=== PATIENT | female | born 1990 | race Caucasian/White ===

== ENCOUNTER → 2018-09-27 09:24 | Outpatient (CLI) | payer MEDICAID, SELFPAY ==
[2018-09-27 10:49] LABS: Hemoglobin 12.6 g/dl (12.0-15.0); Mean Corp Hgb Conc 32.3 g/gl (32-36); Mean Corpuscular Hgb 28.4 pg (27.0-32.0); Mean Platelet Vol. 10.5 fl (6.2-12.0); Platelet Count 364 K/mm3 (150-450); RBC Distribution Width CV 15.1 % (11.6-14.6); RBC Distribution Width SD 48.4 fl (35.1-43.9); Red Blood Count 4.43 M/mm3 (4.2-5.4); Scan Indicated on CBC? Y/N NO; White Blood Count 11.4 K/mm3 (4.4-11.0)
[2018-09-27 11:11] LABS: Hemoglobin A1c 5.7 % (4.2-6.3)
[2018-09-27 11:16] LABS: Vitamin B12 533 pg/mL (211-911); Vitamin D,25 Hydroxy 20.5 ng/mL (29.95-100.01)
[2018-09-27 11:21] LABS: ALB/GLOB Ratio 0.7 RATIO (0.9-2.4); AST(SGOT) 14 U/L (15-37); Alanine Aminotransfer ALT/SGPT 28 U/L (13-56); Albumin, Serum 3.4 g/dL (3.2-5.0); Alkaline Phosphatase 76 U/L (45-117); Anion Gap 9 (5-15); BUN 12 mg/dL (7-18); BUN/Creat Ratio 14.3 RATIO (10-20); Calcium,Total 8.7 mg/dL (8.5-10.1); Chloride 106 mmol/L (98-107); Cholesterol 189 mg/dL (200); Creatinine, Serum 0.84 mg/dL (0.55-1.02); EST Glomerular Filtration Rate 84 mL/min (>60); Est Glom Filt Rate - Afr Amer 102 mL/min (>60); Ferritin 26 ng/mL (8-252); Globulin 4.7 g/dL (2.2-4.2); Glucose 94 mg/dL (74-106); High Density Lipoprotein 45 mg/dL; Iron 33 ug/dL (50-170); Magnesium 2.3 mg/dL (1.6-2.6); Potassium 4.2 mmol/L (3.5-5.1); Protein, Total 8.1 g/dL (6.4-8.2); Sodium Level 141 mmol/L (136-145); Thyroid Stim Hormone (TSH) 1.76 uIU/mL (0.358-3.74); Triglycerides 152 mg/dL; Very Low Density Lipoprotein 30 mg/dL (5-40)
[2018-09-27 12:44] LABS: Amphetamine Urine VISTA NEGATIVE (<1000 ng/mL); Barbiturate Urine VISTA NEGATIVE (< 200 ng/mL); Benzodiazepine Urine VISTA NEGATIVE (< 200 ng/mL); Cocaine Urine VISTA NEGATIVE (< 300 ng/mL); Ecstacy Urine VISTA NEGATIVE (< 500 ng/mL); Methadone Urine VISTA NEGATIVE (< 300 ng/mL); PCP Urine VISTA NEGATIVE (< 25 ng/mL); THC Urine VISTA NEGATIVE (< 50 ng/mL); Vista UDS pH Range 7
[2018-10-02 09:47] LABS: Vitamin B1, Thiamine 157.1 nmol/L (66.5-200.0); Zinc, Plasma or Serum 102 ug/dL (56-134)
== END ==
PROVIDERS: Family Provider Internal Medicine; PCP Internal Medicine; Referring Provider Registered Nurse Nephrology; Visit Provider Registered Nurse Nephrology
DX: R53.83 Other fatigue (principal); R06.02 Shortness of breath; E66.01 Morbid (severe) obesity due to excess calories; R12 Heartburn
CPT/HCPCS: 36415; 80053; 80061; 80307; 82306; 82607; 82728; 82746; 83036; 83540; 83735; 84425; 84443; 84630; 85027

== ENCOUNTER 2019-01-31 22:05 | Emergency (ER) | payer MEDICAID, SELFPAY ==
[2019-01-31 22:06] VITALS: BP 150/86; PULSE 128; RESP 19; TEMP 37.3; O2SAT 98; BMI 39.6
[2019-01-31 22:22] VITALS: TEMP 37.3
--- NOTE | 2019-01-31 22:24 | ED.RN ---
PT HAS A REDDENED RASH/YEAST INFECTION IN HER ABDOMINAL FOLD AND NEAR THE STERI STRIP SITES.
--- NOTE | 2019-01-31 22:32 | ED.VIS.GEN ---
History of Present Illness Chief Complaint: Wound Check Informant: Patient Onset: Days Context: Gradual Onset Narrative: Patient is a 29-year-old female that is status post laparoscopic Nela-en-Y gastric bypass performed by Dr Patel on 01/22 presenting with worsening nausea as well as worsening rash. Patient states she had an uncomplicated surgical course. The past 4 days she has had a worsening rash underneath her pannus and around her like us. Patient states is itching and burning in nature. She states she was started on 2 medications 2 days ago for suspected yeast infection (and ointment and fluconazole). Patient also states that she is having a hard time keeping herself hydrated. She is having a lot of nausea and dry heaves. She is only drinking about 8 ounces of water a day. She states she supposed be drinking 64 ounces. She notes she had decreased urine output. Patient does have a postoperative pain on the left upper abdomen which she states been present since her surgery. She has not had any significant change in this. She denies any fever or chills. She states she is passing gas and has had some liquid bowel movement since the surgery. She denies any other complaints at this time. She notes she has an appointment to see her surgeon tomorrow morning but could not wait any longer. Past Medical History - Allergies and Home Meds Allergies/Adverse Reactions: Allergies No Known Allergies Allergy (Verified 01/31/19 22:11) Primary Care Physician: Staci Mckeon MD [Primary Care Provider] - Past Medical History: None Surgical History: cholecystectomy, gastric bypass Smoking Status: Unknown if ever smoked Review of Systems All systems negative except as indicated General: Reports: Malaise Gastrointestinal: Reports: Abdominal pain, Nausea, Vomiting Skin: Reports: Rash Physical Exam Vital Signs/Narrative: Vital Signs Temp Pulse Resp BP Pulse Ox 01/31/19 22:22 99.2 F H 01/31/19 22:06 99.2 F H 128 H 19 H 150/86 H 98 Inital Vital Signs reviewed: Yes General: Well nourished, Well developed, Obese, No Acute Distress, - - Tearful Head: Normocephalic, Atraumatic Eyes: Perrl, EOMI ENT: No rhinorrhea, Dry mucous membranes Neck: Supple, Nontender Cardiovascular: Regular rhythm, No murmurs, Tachycardia Respiratory: No distress, CTA bilaterally, Chest nontender Abdomen: Soft, Nondistended, Hypoactive bowel sounds, - - Mild tenderness to palpation in the left abdomen as well as periumbilical area, no peritoneal signs. Negative for: Guarding, Rebound tenderness Back: Nontender, Normal Inspection Extremities: Nontender, No edema Skin: Normal color, No rash Neurological: Alert, Oriented x3, Cranial nerves II-XII grossly intact, Normal Strength, Normal Sensation Psychological: Normal affect, Tearful, - - Anxious Diagnostic/Tx/Re-eval Laboratory Data 01/31/19 22:54 Sodium 138 Potassium 3.6 Chloride 107 Carbon Dioxide 20.0 L Anion Gap 11 BUN 11 Creatinine 0.73 Estim Creat Clear Calc 116.69 Est GFR (MDRD) Af Amer 119 Est GFR (MDRD) Non-Af 98 BUN/Creatinine Ratio 15.0 Glucose 88 Calcium 9.0 - Medical Decision Making She is evaluated for 2 complaints. She has a rash that has been worsening her over the past 4 days and is also having nausea and vomiting postoperatively. She appears nontoxic and in no acute distress however she is quite anxious. She does have some associated tenderness her abdomen but I attribute this to her postoperative status. She does not have peritoneal signs. Patient is given IV fluids as well as IV Phenergan. On evaluation she states she is feeling better. I spoke with her surgeon who is agreeable with discharge home to follow-up in the office tomorrow as well as short course of steroids in case this is an contact dermatitis. Patient rash does look fungal however she thinks it is getting worse with antifungal so we will trial a course of steroids. She is having trouble tolerating food/medications I will give her a shot of Kenalog. Patient is agreeable with this plan. She is also prescribed a course of Kenalog cream. The rest of the patient's complaints I suspect are from an expected postoperative course and I do not think she requires further evaluation such as imaging or further labs. Patient is counseled on signs and symptoms requiring return to the emergency room. Patient verbalizes agreement and understand this plan. Patient discharged home in stable and improved condition. ED Disposition - Plan for ED Patient: Disposition: Home or Assisted Living Diagnosis: Dermatitis associated with moisture, Post-operative nausea and vomiting, Postoperative abdominal pain Instructions: POST OP WOUND CHECK, General, DERMATITIS, Non-Specific, Methylprednisolone, Im/Iv Prescriptions: proMETHazine tablet [Phenergan] 25 mg PO Q6H PRN PRN #10 tab PRN Reason: Nausea Prescription Printed Referrals: Staci Mckeon MD [Primary Care Provider] - Additional Instructions: Very importantly follow-up with your surgeon tomorrow. Try to drink as much fluid as possible. Return if you have worsening symptoms. Use the steroid cream 2-3 times a day as needed.
[2019-01-31 23:15] LABS: Anion Gap 11 (5-15); BUN 11 mg/dL (7-18); Chloride 107 mmol/L (98-107); Creatinine, Serum 0.73 mg/dL (0.55-1.02); EST Glomerular Filtration Rate 98 mL/min (>60); Est Glom Filt Rate - Afr Amer 119 mL/min (>60); Estimated Creatinine Clearance 116.69 ml/min; Glucose 88 mg/dL (74-106); Potassium 3.6 mmol/L (3.5-5.1); Sodium Level 138 mmol/L (136-145)
[2019-01-31] MEDS: 0.9% Normal Saline 1,000 ML 1000 ML IV (23:18)
[2019-01-31] MEDS: proMETHazine 25 MG/ML Syringe 12.5 MG IV (23:18)
[2019-02-01 00:04] VITALS: BP 113/73; PULSE 80; RESP 16; TEMP 37.7; O2SAT 97
[2019-02-01 00:05] VITALS: BP 125/82; PULSE 76; RESP 18; O2SAT 97
[2019-02-01] MEDS: Triamcinolone Acetonide 40 MG/ML Vial IM (00:13)
[2019-02-01] MEDS: Triamcinolone 0.5% Cream 1 APPLIC TOPICAL (00:14)
--- NOTE | 2019-02-01 00:32 | ED.RN ---
SHOT TIME WAS OBSERVED FOR 15MIN, NO REACTION WAS NOTED BY THIS NURSE.
== END 2019-02-01 00:33 | disposition home or self-care (01) ==
PROVIDERS: Emergency Provider Emergency Medicine; Family Provider Internal Medicine; PCP Internal Medicine
DX: L30.9 Dermatitis, unspecified (principal); R10.12 Left upper quadrant pain; G89.18 Other acute postprocedural pain; R11.2 Nausea with vomiting, unspecified; Z98.84 Bariatric surgery status; Z90.49 Acquired absence of other specified parts of digestive tract
CPT/HCPCS: 80048; 96361; 96372; 96374; 99285; J7030; A4216

== ENCOUNTER → 2019-02-26 | Outpatient (CLI) | payer MEDICAID, SELFPAY ==
[2019-01-31 22:06] VITALS: BMI 39.6
[2019-02-26 13:30] LABS: Hematocrit 40.3 % (37-47); Hemoglobin 12.8 g/dL (12.0-15.0); Mean Corp Hgb Conc 31.8 g/dL (32-36); Mean Corpuscular Hgb 29.2 pg (27.0-32.0); Mean Corpuscular Volume 91.8 fL (81-99); Mean Platelet Vol. 10.7 fl (6.2-12.0); Platelet Count 273 K/mm3 (150-450); RBC Distribution Width SD 54.4 fl (35.1-43.9); Red Blood Count 4.39 M/mm3 (4.2-5.4); White Blood Count 6.9 K/mm3 (4.4-11.0)
[2019-02-26 14:12] LABS: Vitamin B12 709 pg/mL (211-911)
[2019-02-26 14:22] LABS: BUN 9 mg/dL (7-18); Creatinine, Serum 0.64 mg/dL (0.55-1.02); Glucose 98 mg/dL (74-106)
[2019-02-26 14:23] LABS: ALB/GLOB Ratio 0.8 RATIO (0.9-2.4); AST(SGOT) 20 U/L (15-37); Alanine Aminotransfer ALT/SGPT 36 U/L (13-56); Albumin, Serum 3.4 g/dL (3.2-5.0); Alkaline Phosphatase 72 U/L (45-117); Anion Gap 7 (5-15); Calcium,Total 8.9 mg/dL (8.5-10.1); Chloride 106 mmol/L (98-107); EST Glomerular Filtration Rate 115 mL/min (>60); Est Glom Filt Rate - Afr Amer 139 mL/min (>60); Ferritin 31 ng/mL (8-252); Globulin 4.2 g/dL (2.2-4.2); Iron 51 ug/dL (50-170); Magnesium 2.4 mg/dL (1.6-2.6); Potassium 3.8 mmol/L (3.5-5.1); Protein, Total 7.6 g/dL (6.4-8.2); Sodium Level 140 mmol/L (136-145)
[2019-02-28 12:22] LABS: Zinc, Plasma or Serum 102 ug/dL (56-134)
== END | disposition home or self-care (01) ==
PROVIDERS: Family Provider Internal Medicine; PCP Internal Medicine
DX: E66.01 Morbid (severe) obesity due to excess calories (principal); K90.9 Intestinal malabsorption, unspecified; E61.7 Deficiency of multiple nutrient elements
CPT/HCPCS: 80053; 82607; 82728; 82746; 83540; 83735; 84630; 85027

== ENCOUNTER → 2019-06-13 15:38 | Outpatient (CLI) | payer MEDICAID, SELFPAY ==
[2019-06-13 16:37] LABS: Hematocrit 38.2 % (37-47); Hemoglobin 12.2 g/dL (12.0-15.0); Mean Corp Hgb Conc 31.9 g/dL (32-36); Mean Corpuscular Hgb 29.3 pg (27.0-32.0); Mean Corpuscular Volume 91.8 fL (81-99); Platelet Count 318 K/mm3 (150-450); RBC Distribution Width CV 14.4 % (11.6-14.6); RBC Distribution Width SD 48.1 fl (35.1-43.9); Red Blood Count 4.16 M/mm3 (4.2-5.4); White Blood Count 7.8 K/mm3 (4.4-11.0)
[2019-06-13 17:16] LABS: Vitamin B12 433 pg/mL (211-911)
[2019-06-13 17:23] LABS: ALB/GLOB Ratio 0.9 RATIO (0.9-2.4); AST(SGOT) 9 U/L (15-37); Alanine Aminotransfer ALT/SGPT 18 U/L (13-56); Albumin, Serum 3.7 g/dL (3.2-5.0); Alkaline Phosphatase 70 U/L (45-117); Anion Gap 6 (5-15); BUN 14 mg/dL (7-18); BUN/Creat Ratio 19.6 RATIO (10-20); Calcium,Total 9.4 mg/dL (8.5-10.1); Chloride 108 mmol/L (98-107); Creatinine, Serum 0.72 mg/dL (0.55-1.02); EST Glomerular Filtration Rate 101 mL/min (>60); Est Glom Filt Rate - Afr Amer 122 mL/min (>60); Ferritin 27 ng/mL (8-252); Glucose 92 mg/dL (74-106); Iron 66 ug/dL (50-170); Magnesium 2.4 mg/dL (1.6-2.6); Potassium 3.8 mmol/L (3.5-5.1); Protein, Total 7.7 g/dL (6.4-8.2); Sodium Level 140 mmol/L (136-145)
[2019-06-16 10:41] LABS: Zinc, Plasma or Serum 74 ug/dL (56-134)
== END ==
PROVIDERS: PCP Internal Medicine; Referring Provider Registered Nurse Nephrology; Visit Provider Registered Nurse Nephrology
DX: E66.09 Other obesity due to excess calories (principal); Z68.38 Body mass index [BMI] 38.0-38.9, adult; K90.9 Intestinal malabsorption, unspecified; E61.7 Deficiency of multiple nutrient elements
CPT/HCPCS: 36415; 80053; 82607; 82728; 82746; 83540; 83735; 84630; 85027

== ENCOUNTER 2019-06-24 20:17 | Emergency (ER) | payer MEDICAID, SELFPAY ==
[2019-06-24 20:18] VITALS: BP 138/91; PULSE 69; RESP 14; TEMP 36.7; O2SAT 100; BMI 31.0
--- NOTE | 2019-06-24 21:33 | EKG12_ITS ---
Test Reason : DIZZINESS Blood Pressure : / mmHG Vent. Rate : 046 BPM Atrial Rate : 046 BPM P-R Int : 170 ms QRS Dur : 104 ms QT Int : 450 ms P-R-T Axes : 018 006 015 degrees QTc Int : 393 ms Sinus bradycardia Otherwise normal ECG Confirmed by JOSE HIDALGO ([id number]), editorial assistant CHARLIE LEUNG ([id number]) on 06/27/2019 2:51:23 PM Referred By: ARIA Confirmed By:JOSE HIDALGO
[2019-06-24] MEDS: 0.9% Normal Saline 1,000 ML 1000 ML IV (21:41)
[2019-06-24 21:46] VITALS: BP 108/73; BP 129/85; BP 130/93; PULSE 58; PULSE 61; PULSE 65
[2019-06-24 21:57] LABS: Absolute Lymphocyte Count 3.01 X10^3/uL (0.83-4.51); Absolute Neutrophil Count 2.9 X10^3/uL (2.0-7.7); Basophil# 0.03 X10^3/uL; Basophil% 0.5 % (0-1); Eosinophil# 0.11 X10^3/uL; Eosinophils% 1.7 % (0-5); Hematocrit 37.3 % (37-47); Hemoglobin 11.8 g/dL (12.0-15.0); Internal QC Validated? YES +Cl - CLEAR BKGD; Lymphocyte # 3.01 X10^3/ul (4.0); Mean Corp Hgb Conc 31.6 g/dL (32-36); Mean Corpuscular Hgb 29.1 pg (27.0-32.0); Mean Corpuscular Volume 91.9 fL (81-99); Mean Platelet Vol. 10.9 fl (6.2-12.0); Monocyte# 0.46 X10^3/uL; NRBC Flagged by Analyzer 0 % (0-5); Neutrophil # 2.92 X10^3/uL (2.7-7.7); Neutrophil % 44.6 % (47-70); Platelet Count 263 K/mm3 (150-450); RBC Distribution Width CV 14.5 % (11.6-14.6); RBC Distribution Width SD 49.1 fl (35.1-43.9); Red Blood Count 4.06 M/mm3 (4.2-5.4); White Blood Count 6.5 K/mm3 (4.4-11.0)
[2019-06-24 22:02] LABS: Pregnancy, Serum, hCG Quali. NEGATIVE Negative
[2019-06-24 22:05] LABS: Anion Gap 6 (5-15); BUN 14 mg/dL (7-18); BUN/Creat Ratio 23.5 RATIO (10-20); Calcium,Total 8.6 mg/dL (8.5-10.1); Chloride 109 mmol/L (98-107); EST Glomerular Filtration Rate 124 mL/min (>60); Est Glom Filt Rate - Afr Amer 150 mL/min (>60); Estimated Creatinine Clearance 146.91 ml/min; Glucose 88 mg/dL (74-106); Potassium 3.8 mmol/L (3.5-5.1); Sodium Level 143 mmol/L (136-145)
[2019-06-24 22:55] LABS: Red Blood Cells-Urine 0 SEEN /hpf (0-5)
[2019-06-24 23:00] VITALS: BP 122/76; PULSE 62; RESP 17; O2SAT 97
[2019-06-24 23:04] LABS: Color, Urine Yellow (Yellow); Glucose, Dipstick Normal (Normal); Ketone-Dipstick 15 mg/dl (Negative); Leukocyte Esterase-Dipstick 100 /ul (Negative); Nitrite-Dipstick Negative (Negative); Occult Blood-Urine Negative /ul (Negative); Protein-Dipstick Negative (Negative); Specific Gravity, Urine 1.015 (1.002-1.030); Urine Bilirubin Dipstick Negative (Negative); Urine Clarity Sl. Cloudy (Clear); Urine Urobilinogen Normal (Normal)
[2019-06-24 23:15] LABS: Bacteria 1+ /hpf (None Seen); Mucous, Urine 1+ /hpf (<or=2+); Squamous Epithelial Cells - UA 5-10 SEEN /hpf (5-10); White Blood Cells 0-5 SEEN /hpf (0-5)
--- NOTE | 2019-06-24 23:34 | ED.DCSUM_ITS ---
History of Present Illness Chief Complaint: Dizziness Informant: Patient Onset: Days Narrative: Patient presents with extreme fatigue is been ongoing for the past couple of days. For example she states she took a shower and get ready for the day but then laid in bed and slept for 6 hours because she was so exhausted. Patient states there is been a couple times today where she gets abruptly lightheaded. She has not passed out. She had cold symptoms 2 weeks ago but that has seemed to improve. She has continued mild cough. She denies chest pain or palpitations. - Past Medical History (1) H/O gastric bypass Status: Chronic (2) History of cholecystectomy Status: Chronic Past Medical History - Allergies and Home Meds Allergies/Adverse Reactions: Allergies No Known Allergies Allergy (Verified 06/24/19 20:21) Primary Care Physician: Staci Mckeon MD [Primary Care Provider] - Prior records reviewed: Yes Surgical History: cholecystectomy, gastric bypass Smoking Status: Never smoker Review of Systems General: Denies: Chills, Fever Eyes: Denies: Visual changes - bilaterally ENT: Denies: Bilateral ear pain Cardiovascular: Denies: Chest pain, Palpitations, Heart racing Respiratory: Denies: Dyspnea, Cough Gastrointestinal: Denies: Abdominal pain, Nausea, Vomiting, Diarrhea Genitourinary: Denies: Dysuria Musculoskeletal: Denies: Extremity Pain Skin: Denies: Rash Neurological: Reports: Weakness - Generalized weakness. Denies: Headache, Parasthesia, Numbness Allergy: Denies: Uticaria Physical Exam Vital Signs/Narrative: Vital Signs Temp Pulse Pulse Pulse Pulse Resp BP 06/24/19 21:46 58 L 61 65 06/24/19 20:18 98.0 F 69 14 138/91 H BP BP BP Pulse Ox 06/24/19 21:46 108/73 130/93 H 129/85 H 06/24/19 20:18 100 Inital Vital Signs reviewed: Yes General: Well nourished, Well developed Head: Normocephalic ENT: Moist mucous membranes Neck: Supple Cardiovascular: Regular rate, Regular rhythm Respiratory: No distress, CTA bilaterally Abdomen: Soft, Nontender Extremities: Nontender, No edema Skin: Normal color, No rash Neurological: Alert, Oriented x3, Normal Strength, Normal Sensation, - - No focal neurologic deficits. Psychological: Normal affect Diagnostic/Tx/Re-eval Laboratory Results 06/24/19 06/24/19 06/24/19 20:44 20:44 20:44 WBC 6.5 RBC 4.06 L Hgb 11.8 L Hct 37.3 MCV 91.9 MCH 29.1 MCHC 31.6 L RDW Std Deviation 49.1 H RDW Coeff of Nara 14.5 Plt Count 263 MPV 10.9 Immature Gran % (Auto) 0.200 Neut % (Auto) 44.6 L Lymph % (Auto) 46.0 H [place] % (Auto) 7.0 Eos % (Auto) 1.7 Baso % (Auto) 0.5 Absolute Neuts (auto) 2.9 Absolute Lymphs (auto) 3.01 Nucleated RBC % 0 Sodium 143 Potassium 3.8 Chloride 109 H Carbon Dioxide 28.0 Anion Gap 6 BUN 14 Creatinine 0.60 Estim Creat Clear Calc 146.91 Est GFR (MDRD) Af Amer 150 Est GFR (MDRD) Non-Af 124 BUN/Creatinine Ratio 23.5 H Glucose 88 Calcium 8.6 Serum , Qual NEGATIVE Urine Color Urine Clarity Urine pH Ur Specific [place] Urine Protein Urine Glucose (UA) Urine Ketones Urine Occult Blood Urine Nitrite Urine Bilirubin Urine Urobilinogen Ur Leukocyte Esterase Urine RBC Urine WBC Ur Squamous Epith Cells Urine Bacteria Urine Mucus 06/24/19 22:47 WBC RBC Hgb Hct MCV MCH MCHC RDW Std Deviation RDW Coeff of Nara Plt Count MPV Immature Gran % (Auto) Neut % (Auto) Lymph % (Auto) [place] % (Auto) Eos % (Auto) Baso % (Auto) Absolute Neuts (auto) Absolute Lymphs (auto) Nucleated RBC % Sodium Potassium Chloride Carbon Dioxide Anion Gap BUN Creatinine Estim Creat Clear Calc Est GFR (MDRD) Af Amer Est GFR (MDRD) Non-Af BUN/Creatinine Ratio Glucose Calcium Serum , Qual Urine Color Yellow Urine Clarity Sl. Cloudy Urine pH 6.0 Ur Specific [place] 1.015 Urine Protein Negative Urine Glucose (UA) Normal Urine Ketones 15 H Urine Occult Blood Negative Urine Nitrite Negative Urine Bilirubin Negative Urine Urobilinogen Normal Ur Leukocyte Esterase 100 H Urine RBC 0 SEEN Urine WBC 0-5 SEEN Ur Squamous Epith Cells 5-10 SEEN Urine Bacteria 1+ Urine Mucus 1+ - EKG Initial EKG Interpretation: Sinus Bradycardia - Sinus bradycardia at 46 bpm. No acute ischemia. Normal intervals. - Medical Decision Making Orthostatic vital signs were obtained and unremarkable. Test results are discussed with patient. I have no specific cause for her current symptoms. I recommended close follow-up with her primary care physician. ED Disposition - Plan for ED Patient: Disposition: Home or Assisted Living Diagnosis: Dizzy Instructions: DIZZINESS, Unk Cause Referrals: Staci Mckeon MD [Primary Care Provider] - 3-5 Days
[2019-06-24 23:47] VITALS: PULSE 17
== END 2019-06-24 23:47 | disposition home or self-care (01) ==
PROVIDERS: Emergency Provider Emergency Medicine; PCP Internal Medicine
DX: R42 Dizziness and giddiness (principal)
CPT/HCPCS: 80048; 81001; 84703; 85025; 93005; 96360; 96361; 99285; J7030; A4216

== ENCOUNTER 2020-09-13 19:28 | Emergency (ER) | payer OTHER, MEDICAID, SELFPAY ==
[2020-09-13 19:29] VITALS: BP 132/75; PULSE 90; RESP 18; TEMP 37; O2SAT 96; BMI 25.6
--- NOTE | 2020-09-13 20:42 | EX.ED.DYSGE1 ---
HPI History of Present Illness Chief Complaint: Wound Check Informant: patient Onset/Context/Timing Onset: Today Current Severity: Mild Maximum Severity: Mild Narrative Narrative: Patient presents for wound check. She had an abdominoplasty performed [address] Campos. She saw him earlier this week and had what sounds of an abscess drained on the lower aspect of the wound. Today she noted her abdominal wound opening just superior to the umbilicus. She called him and he advised that she can follow-up on Tuesday but she was concerned and felt it should be evaluated. She denies any drainage. She is already on an antibiotic. PFSH PFSH no medical history Home Medications calcium carbonate-vitamin D3 1 ea PO TID 06/24/19 [History Last Taken Unknown] multivitamin with minerals 1 ea PO DAILY 06/24/19 [History Last Taken Unknown] sulfamethoxazole-trimethoprim 1 tab PO BID 09/13/20 [History Last Taken Unknown] Allergy/AdvReac Type Severity Reaction Status Date / Time No Known Allergies Allergy Verified 09/13/20 19:29 Surgical History Gastric bypass status for obesity H/O abdominoplasty History of cholecystectomy Social History Smoking Status: Never smoker ROS ROS ED Constitutional Constitutional ED: Denies chills or fever(s) Eyes Eyes: Denies change in vision ENT ENT ED: Denies sore throat Cardiovascular Cardiovascular: Denies chest pain Respiratory/Chest Respiratory/Chest: Denies cough or dyspnea Gastrointestinal Gastrointestinal: Denies abdominal pain, diarrhea, nausea or vomiting Genitourinary Genitourinary ED: Denies dysuria Musculoskeletal Musculoskeletal: Denies back pain Integumentary Reports other Details: Wound dehiscence from recent abdominoplasty incision ; Denies rash Neurologic Neurologic: Denies headache(s) or weakness Psychiatric Psychiatric: Denies anxiety or depression Endocrine Endocrinology: Denies polydipsia or polyuria Allergic/Immunologic Allergic/Immunologic ED: Denies urticaria EXAM Physical Exam Const Vital Signs: 09/13/20 19:29 09/13/20 21:08 Temperature 98.6 F Temperature Source Temporal Pulse Rate 90 80 Respiratory Rate 18 16 Blood Pressure 132/75 H 128/70 H Blood Pressure Mean 94 Pulse Ox 96 97 Oxygen Delivery Method Room Air Positive well nourished and well developed General Appearance ED: well developed HEENT Reports normocephalic and head/scalp atraumatic Eyes PERRL and EOMs intact bilaterally Neck supple Chest Wall inspection of chest normal and palpation of chest normal Resp normal respiratory effort and clear to auscultation bilaterally Cardio regular rate and regular rhythm GI normal to inspection, nondistended, normoactive bowel sounds GI Narrative: 3 cm area of superficial wound dehiscence just superior to the umbilicus. No sign of infection. No drainage. Healing abscess along the lower aspect of the surgical wound. Palpation: soft Back/Spine no CVA tenderness Extremity normal to inspection Neuro oriented x3 and no sensory deficits noted Sensorium / Orientation: alert Motor Exam: strength 5/5 throughout Psych mental status grossly normal Skin Skin Narrative: Surgical wound as above MDM MDM Treatment and Re-Evaluation Comments:: Area of wound dehiscence was cleansed. Steri-Strips were placed across the area. Wound care is discussed and patient will follow up with her surgeon next week as planned. Discharge Plan Triage Chief Complaint: Wound Check ED Provider: Alice Jay Dx/Rx/DC Orders Clinical Impression: Abdominal wound dehiscence Instructions: ED Post Op Wound Check, General, ED Wound Check (No Infection) Prescriptions: No Action multivitamin with minerals 1 EACH tablet 1 ea PO DAILY RF: 0 calcium carbonate-vitamin D3 1 EACH tablet,chewable 1 ea PO TID RF: 0 sulfamethoxazole-trimethoprim 800-160 mg tablet 1 tab PO BID RF: 0 Primary Care Provider: Staci Mckeon Referrals: Staci Mckeon MD [Primary Care Provider] - Activity Restrictions/Additional Instructions: Follow-up with Dr Capmos as planned. Disposition Disposition: Home, self care Discharge Date/Time: 09/13/20 21:09
[2020-09-13 21:08] VITALS: BP 128/70; PULSE 80; RESP 16; O2SAT 97
== END 2020-09-13 21:09 | disposition home or self-care (01) ==
PROVIDERS: Emergency Provider Emergency Medicine; PCP Internal Medicine
DX: T81.31XA Disruption of external operation (surgical) wound, not elsewhere classified, initial encounter (principal); Z98.84 Bariatric surgery status
CPT/HCPCS: 99282

== ENCOUNTER 2021-05-31 03:30 | Emergency (ER) | payer OTHER, MEDICAID, SELFPAY ==
[2021-05-31 03:32] VITALS: BP 135/97; PULSE 85; RESP 18; TEMP 36.6; O2SAT 100; BMI 23.4
--- NOTE | 2021-05-31 03:52 | CT_ITS ---
STUDY: CT ABDOMEN AND PELVIS WITH CONTRAST REASON FOR EXAM: Female, 31 years old. abd pain RADIATION DOSAGE (If Supplied By Facility): CTDIvol = ( 10.91 ) mGy, DLP = ( 837.03 ) mGycm TECHNIQUE: Transaxial images were obtained from the dome of the diaphragm to the symphysis pubis without oral contrast. IV 100mL Isovue-370 was administered. Sagittal and coronal images were reconstructed. Individualized dose optimization techniques were used for this CT. COMPARISON: None. FINDINGS: The visualized lung bases are unremarkable. The visualized portions of the heart are within normal limits. Normal liver. There are surgical clips in the gallbladder fossa consistent with a prior cholecystectomy. There is mild dilatation of the intrahepatic biliary tree and common bile duct most likely due to prior cholecystectomy. Normal spleen. Normal pancreas. Normal bilateral adrenal glands. Normal right kidney. Normal left kidney. Gastric bypass. Normal small intestine. Normal colon. The appendix is visualized and appears normal. Normal abdominal aorta. Normal inferior vena cava. Normal retroperitoneum. Normal urinary bladder. Normal abdominal wall. Normal osseous structures. CT/Abdomen/Pelvis W IV Cont ONLY IMPRESSION: Normal enhanced CT of the abdomen and pelvis. Electronically Signed: Constanza Clark MD at 5:22 EST ,
[2021-05-31] MEDS: 0.9% Normal Saline 1,000 ML 999 ML IV (04:07)
[2021-05-31] MEDS: Morphine 4 MG/ML Syringe IV (04:07)
[2021-05-31] MEDS: Ondansetron 4 MG/2 ML Vial IV (04:07)
--- NOTE | 2021-05-31 04:10 | EX.ED.DYSGE1 ---
HPI History of Present Illness Chief Complaint: Abd Pain Narrative Narrative: Patient is a 31-year-old female with past surgical history of gastric bypass internal hernia repair and tummy tuck. She states that she has had upper abdominal pain for the past 2 to 3 days that worsened this evening. She denies any trauma prior to the pain beginning. She states she is nauseated without vomiting but states also that she cannot pass gas. Secondary to the worsening pain in her previous surgery she is concerned that there is something internally wrong and therefore comes in for evaluation PFSH [facility] Home Medications calcium carbonate-vitamin D3 1 ea PO TID 06/24/19 [History Last Taken Unknown] multivitamin with minerals 1 ea PO DAILY 06/24/19 [History Last Taken Unknown] lorazepam [Ativan] 0.5 mg PO DAILY PRN 05/31/21 [History Last Taken Unknown] pantoprazole [Protonix] 40 mg PO DAILY 30 Days #30 tab 05/31/21 [Rx Last Taken Unknown] sulfamethoxazole-trimethoprim [Bactrim DS] 1 tab PO BID 5 Days #10 tab 05/31/21 [Rx Last Taken Unknown] Allergy/AdvReac Type Severity Reaction Status Date / Time No Known Allergies Allergy Verified 05/31/21 03:35 Surgical History Gastric bypass status for obesity H/O abdominoplasty History of cholecystectomy Social History Smoking Status: Never smoker ROS [facility] ED Constitutional Constitutional ED: Denies chills or fever(s) ENT ENT ED: Denies sore throat Cardiovascular Cardiovascular: Denies chest pain Respiratory/Chest Respiratory/Chest: Denies cough or dyspnea Gastrointestinal Gastrointestinal: Reports abdominal pain, constipation and nausea; Denies diarrhea or vomiting Genitourinary Genitourinary ED: Denies dysuria Musculoskeletal Musculoskeletal: Denies myalgias Integumentary Denies rash Neurologic Neurologic: Denies headache(s) Hematologic/Lymphatic Hematologic/Lymphatic: Denies easy bleeding or easy bruising EXAM Physical Exam Const Vital Signs: 05/31/21 03:32 05/31/21 06:47 Temperature 97.9 F Temperature Source Temporal Pulse Rate 85 64 Respiratory Rate 18 16 Blood Pressure 135/97 H 104/71 Blood Pressure Mean 109 82 Pulse Ox 100 99 Oxygen Delivery Method Room Air Room Air Positive well nourished and well developed General Appearance ED: well developed HEENT Reports moist mucous membranes Eyes PERRL and EOMs intact bilaterally Neck supple Resp normal respiratory effort and clear to auscultation bilaterally Cardio regular rate and regular rhythm GI non-distended GI Narrative: Abdomen is soft and nondistended with hypoactive bowel sounds. There is pain with palpation in the midepigastric region but no voluntary guarding or rigidity. No pulsatile mass Palpation: soft Extremity normal to inspection Neuro oriented x3 and CN's II-XII intact bilaterally Sensorium / Orientation: alert Motor Exam: strength 5/5 throughout Psych mental status grossly normal Skin no rashes or lesions noted MDM MDM MDM Narrative Medical decision making narrative: Patient presented to the ER afebrile. She reported multiple abdominal surgeries in the past and states that she felt bloated/distended and has been constipated. Secondary to this I had concern for a bowel obstruction. Basic blood work was obtained which revealed no clinically significant findings and the CT scan with IV contrast also revealed no acute infectious inflammatory or obstructive process. Patient's urine did show mild bacteria without contamination and therefore I will treat her for this at this time. On reevaluation she is resting comfortably and does have improvement of her pain. Therefore with CT scan showing no signs of infection obstruction or derangement of her previous gastric bypass and she does not have acute kidney injury or urosepsis there is no need for admission and patient can be discharged home. Lab Data Attestation: I reviewed the patient's lab results. Labs: Laboratory Results - last 24 hr 05/31/21 05/31/21 05/31/21 03:40 03:40 03:40 WBC 5.8 RBC 3.58 L Hgb 8.2 L Hct 27.6 L MCV 77.1 L MCH 22.9 L MCHC 29.7 L RDW Std Deviation 49.1 H RDW Coeff of [place] 17.6 H Plt Count 563 H MPV 9.2 Immature Gran % (Auto) 0.300 Neut % (Auto) 46.5 L Lymph % (Auto) 41.7 H [place] % (Auto) 6.7 Eos % (Auto) 2.9 Baso % (Auto) 1.9 H Absolute Neuts (auto) 2.7 Absolute Lymphs (auto) 2.42 Nucleated RBC % 0 Sodium 139 Potassium 3.6 Chloride 106 Carbon Dioxide 27.0 Anion Gap 6 BUN 12 Creatinine 0.67 Estim Creat Clear Calc 124.81 Est GFR (MDRD) Af Amer 129 Est GFR (MDRD) Non-Af 107 BUN/Creatinine Ratio 17.8 Glucose 101 Lactic Acid Calcium 8.7 Total Bilirubin 0.30 Direct Bilirubin 0.11 AST 15 ALT 19 Alkaline Phosphatase 69 Total Protein 7.8 Albumin 3.6 Globulin 4.2 Lipase 119 Serum , Qual NEGATIVE Urine Color Urine Clarity Urine pH Ur Specific [place] Urine Protein Urine Glucose (UA) Urine Ketones Urine Occult Blood Urine Nitrite Urine Bilirubin Urine Urobilinogen Ur Leukocyte Esterase Urine RBC Urine WBC Ur Squamous Epith Cells Urine Bacteria Urine Mucus Urine Test 05/31/21 05/31/21 04:03 05:53 WBC RBC Hgb Hct MCV MCH MCHC RDW Std Deviation RDW Coeff of [place]ara Plt Count MPV Immature Gran % (Auto) Neut % (Auto) Lymph % (Auto) [place] % (Auto) Eos % (Auto) Baso % (Auto) Absolute Neuts (auto) Absolute Lymphs (auto) Nucleated RBC % Sodium Potassium Chloride Carbon Dioxide Anion Gap BUN Creatinine Estim Creat Clear Calc Est GFR (MDRD) Af Amer Est GFR (MDRD) Non-Af BUN/Creatinine Ratio Glucose Lactic Acid 0.8 Calcium Total Bilirubin Direct Bilirubin AST ALT Alkaline Phosphatase Total Protein Albumin Globulin Lipase Serum , Qual Urine Color Yellow Urine Clarity Clear Urine pH 6.5 Ur Specific [place] 1.010 Urine Protein 30 H Urine Glucose (UA) Normal Urine Ketones Negative Urine Occult Blood 250 H Urine Nitrite Negative Urine Bilirubin Negative Urine Urobilinogen Normal Ur Leukocyte Esterase 25 H Urine RBC 0-5 SEEN Urine WBC 0-5 SEEN Ur Squamous Epith Cells 0-5 SEEN Urine Bacteria 1+ Urine Mucus 0 SEEN Urine Test Negative Radiography Diagnostic Testing: Clinical Impression(s) from Imaging Studies Abdomen/Pelvis CT 05/31/21 03:52 IMPRESSION: Normal enhanced CT of the abdomen and pelvis. Electronically Signed: Constanza Clark MD at 5:22 EST , Discharge Plan Triage Chief Complaint: Abd Pain ED Provider: Kenton Haij Dx/Rx/DC Orders Clinical Impression: Nonspecific abdominal pain, UTI (urinary tract infection) Instructions: Abdominal Pain, Urinary Tract Infections in Women Prescriptions: New pantoprazole [Protonix] 40 mg tablet,delayed release (DR/EC) 40 mg PO DAILY 30 Days Qty: 30 RF: 0 sulfamethoxazole-trimethoprim [Bactrim DS] 800-160 mg tablet 1 tab PO BID 5 Days Qty: 10 RF: 0 No Action multivitamin with minerals 1 EACH tablet 1 ea PO DAILY RF: 0 calcium carbonate-vitamin D3 1 EACH tablet,chewable 1 ea PO TID RF: 0 lorazepam [Ativan] 0.5 mg Tablet 0.5 mg PO DAILY PRN (Reason: Anxiety) RF: 0 Primary Care Provider: Staci Mckeon Referrals: Staci Mckeon MD [Primary Care Provider] - Disposition Disposition: Home, Self Care
[2021-05-31 04:11] LABS: Absolute Lymphocyte Count 2.42 X10^3/uL (0.83-4.51); Absolute Neutrophil Count 2.7 X10^3/uL (2.0-7.7); Basophil# 0.11 X10^3/uL; Basophil% 1.9 % (0-1); Eosinophil# 0.17 X10^3/uL; Eosinophils% 2.9 % (0-5); Hematocrit 27.6 % (37-47); Hemoglobin 8.2 g/dL (12.0-15.0); Lymphocyte # 2.42 X10^3/ul (0.83-4.51); Lymphocyte % 41.7 % (19-41); Mean Corp Hgb Conc 29.7 g/dL (32-36); Mean Corpuscular Hgb 22.9 pg (27.0-32.0); Mean Corpuscular Volume 77.1 fL (81-99); Mean Platelet Vol. 9.2 fl (6.2-12.0); Monocyte# 0.39 X10^3/uL; Monocyte% 6.7 % (0-10); NRBC Flagged by Analyzer 0 % (0-5); Neutrophil # 2.69 X10^3/uL (2.7-7.7); Neutrophil % 46.5 % (47-70); Platelet Count 563 K/mm3 (150-450); RBC Distribution Width CV 17.6 % (11.6-14.6); RBC Distribution Width SD 49.1 fl (35.1-43.9); Red Blood Count 3.58 M/mm3 (4.2-5.4); White Blood Count 5.8 K/mm3 (4.4-11.0)
[2021-05-31 04:23] LABS: AST(SGOT) 15 U/L (15-37); Alanine Aminotransfer ALT/SGPT 19 U/L (13-56); Albumin, Serum 3.6 g/dL (3.2-5.0); Alkaline Phosphatase 69 U/L (45-117); Anion Gap 6 (5-15); BUN 12 mg/dL (7-18); BUN/Creat Ratio 17.8 RATIO (10-20); Bilirubin, Direct 0.11 mg/dL (0.00-0.30); Calcium,Total 8.7 mg/dL (8.5-10.1); Chloride 106 mmol/L (98-107); Creatinine, Serum 0.67 mg/dL (0.55-1.02); EST Glomerular Filtration Rate 107 mL/min (>60); Est Glom Filt Rate - Afr Amer 129 mL/min (>60); Estimated Creatinine Clearance 124.81 ml/min; Globulin 4.2 g/dL (2.2-4.2); Glucose 101 mg/dL (74-106); Lipase 119 U/L (73-393); Potassium 3.6 mmol/L (3.5-5.1); Protein, Total 7.8 g/dL (6.4-8.2); Sodium Level 139 mmol/L (136-145)
[2021-05-31 04:27] LABS: Internal QC Validated? YES +Cl - CLEAR BKGD; Pregnancy, Serum, hCG Quali. NEGATIVE Negative
[2021-05-31 04:43] LABS: Lactic Acid 0.8 mmol/L (0.4-1.9)
[2021-05-31] MEDS: HYDROmorphone 1 MG/ML Syringe IV ×2 (05:24→06:25)
[2021-05-31 06:10] LABS: Mucous, Urine 0 SEEN /hpf (<or=2+)
[2021-05-31 06:12] LABS: Color, Urine Yellow (Yellow); Glucose, Dipstick Normal (Normal); Ketone-Dipstick Negative (Negative); Leukocyte Esterase-Dipstick 25 /ul (Negative); Nitrite-Dipstick Negative (Negative); Occult Blood-Urine 250 /ul (Negative); Protein-Dipstick 30 mg/dl (Negative); Urine Bilirubin Dipstick Negative (Negative); Urine Clarity Clear (Clear); Urine Urobilinogen Normal (Normal); Urine pH 6.5 (5.0 - 8.0)
[2021-05-31 06:13] LABS: Internal QC Validated? YES +Cl - CLEAR BKGD
[2021-05-31 06:14] LABS: Pregnancy, Urine Negative Negative
[2021-05-31 06:30] LABS: Bacteria 1+ /hpf (None Seen); Red Blood Cells-Urine 0-5 SEEN /hpf (0-5); Squamous Epithelial Cells - UA 0-5 SEEN /hpf (5-10); White Blood Cells 0-5 SEEN /hpf (0-5)
[2021-05-31 06:47] VITALS: BP 104/71; PULSE 64; RESP 16; O2SAT 99
[2021-05-31 07:10] VITALS: BP 118/69; PULSE 72; RESP 15; O2SAT 98
== END 2021-05-31 07:11 | disposition home or self-care (01) ==
PROVIDERS: Emergency Provider Emergency Medicine; PCP Internal Medicine; Visit Provider Emergency Medicine
DX: N39.0 Urinary tract infection, site not specified (principal); R10.13 Epigastric pain; Z98.84 Bariatric surgery status
CPT/HCPCS: 74177; 80048; 80076; 81001; 81025; 83605; 83690; 84703; 85025; 96365; 96375; 96376; 99283; J7030; Q9967; A4216; J2405

== ENCOUNTER → 2021-06-01 13:53 | Outpatient (CLI) | payer OTHER, MEDICAID, SELFPAY ==
[2021-06-01 14:16] LABS: Hematocrit 27.4 % (37-47); Hemoglobin 8.2 g/dL (12.0-15.0); Mean Corp Hgb Conc 29.9 g/dL (32-36); Mean Corpuscular Hgb 23.2 pg (27.0-32.0); Mean Corpuscular Volume 77.6 fL (81-99); Mean Platelet Vol. 8.6 fl (6.2-12.0); Platelet Count 515 K/mm3 (150-450); RBC Distribution Width CV 17.8 % (11.6-14.6); RBC Distribution Width SD 49.8 fl (35.1-43.9); Red Blood Count 3.53 M/mm3 (4.2-5.4)
[2021-06-01 14:45] LABS: Vitamin B12 463 pg/mL (211-911); Vitamin D,25 Hydroxy 19.8 ng/mL
[2021-06-01 14:57] LABS: ALB/GLOB Ratio 0.9 RATIO (0.9-2.4); AST(SGOT) 15 U/L (15-37); Alanine Aminotransfer ALT/SGPT 20 U/L (13-56); Albumin, Serum 3.6 g/dL (3.2-5.0); Alkaline Phosphatase 69 U/L (45-117); Anion Gap 5 (5-15); BUN 12 mg/dL (7-18); BUN/Creat Ratio 18.9 RATIO (10-20); Calcium,Total 8.6 mg/dL (8.5-10.1); Chloride 110 mmol/L (98-107); Cholesterol 162 mg/dL (200); Creatinine, Serum 0.64 mg/dL (0.55-1.02); EST Glomerular Filtration Rate 114 mL/min (>60); Est Glom Filt Rate - Afr Amer 138 mL/min (>60); Ferritin 5 ng/mL (8-252); Globulin 3.9 g/dL (2.2-4.2); Glucose 99 mg/dL (74-106); High Density Lipoprotein 67 mg/dL; Iron 15 ug/dL (50-170); Magnesium 2.3 mg/dL (1.6-2.6); Potassium 3.6 mmol/L (3.5-5.1); Protein, Total 7.5 g/dL (6.4-8.2); Sodium Level 142 mmol/L (136-145); Triglycerides 98 mg/dL; Very Low Density Lipoprotein 20 mg/dL (5-40)
[2021-06-13 22:06] LABS: Vitamin B1, Thiamine 98.8 nmol/L (66.5-200.0)
[2021-06-14 08:29] LABS: Zinc, Plasma or Serum 86 ug/dL (44-115)
== END ==
PROVIDERS: PCP Internal Medicine
DX: E61.7 Deficiency of multiple nutrient elements (principal); K90.89 Other intestinal malabsorption
CPT/HCPCS: 36415; 80053; 80061; 82306; 82607; 82728; 82746; 83540; 83735; 84425; 84630; 85027

== ENCOUNTER 2021-10-10 05:56 | Emergency (ER) | payer OTHER, MEDICAID, SELFPAY ==
[2021-10-10 05:57] VITALS: BP 153/90; PULSE 86; RESP 18; TEMP 36.6; O2SAT 94; BMI 27.5
--- NOTE | 2021-10-10 06:17 | CT_ITS ---
STUDY: CT ABDOMEN AND PELVIS WITHOUT CONTRAST REASON FOR EXAM: Female, 31 years old. Abd pain -- hx of louie-en-y, hx of internal hernia. RADIATION DOSAGE (If Supplied By Facility): CTDIvol = ( 7.97 ) mGy, DLP = ( 441.88 ) mGycm TECHNIQUE: Transaxial images were obtained from the dome of the diaphragm to the symphysis pubis with oral contrast, and without intravenous contrast. Sagittal and coronal images were reconstructed. Individualized dose optimization techniques were used for this CT. COMPARISON: 05/21/2021. FINDINGS: The visualized lung bases are unremarkable. Partially visualized bilateral breast implants. Normal heart size. There is elongation of the right lobe of the liver likely due to Edy''s lobe. Nonvisualization of the gallbladder likely due to previous cholecystectomy.. Normal spleen. Normal pancreas. Normal bilateral adrenal glands. Normal right kidney. Normal left kidney. Status post gastric bypass surgery. No evidence of extravasated contrast. Normal in caliber small bowel loops. No evidence of small bowel obstruction. Fecal retention in the ascending colon. There is non-visualization of the appendix. Normal abdominal aorta. Normal inferior vena cava. Normal retroperitoneum. Normal urinary bladder. Small umbilical hernia containing fat and mild stranding likely due to previous surgery. No demonstrated acute osseous changes. CT/Abdomen/Pel W ORAL Cont Only IMPRESSION: 1. Status post gastric bypass surgery. 2. No evidence of small bowel obstruction. 3. No focal acute inflammatory process. 4. Absent gallbladder consistent with previous cholecystectomy. Electronically Signed: Sandro Pelaez MD at 9:08 EDT ,
--- NOTE | 2021-10-10 06:18 | EDS_ITS ---
HPI HPI - GI History of Present Illness Chief Complaint: Abd Pain Informant: patient Narrative Narrative: Increasing upper abdominal pain since 3 PM yesterday. Nausea with dry heaves. Normal bowel movement yesterday morning. History of c holecystectomy 2006. History of Nela-en-Y bypass [address] Hawley. No fevers. No urinary symptoms. Intermittently has been using her omeprazole. History of anxiety. Reports similar symptoms when she diagnosed with internal hernia x2. She had a previous visit here in May with similar with a negative work-up. She states symptoms progress and up in [place] and stated had an internal hernia with surgery this past June. Denies any allergies however states morphine gives her headaches. Denies alcohol history. Denies history of pancreatitis. Prior similar symptoms: Yes PFSH PFSH Home Medications multivitamin with minerals 1 ea PO DAILY 06/24/19 [History Last Taken Unknown] lorazepam [Ativan] 0.5 mg PO DAILY PRN 05/31/21 [History Last Taken Unknown] pantoprazole [Protonix] 40 mg PO DAILY 30 Days #30 tab 05/31/21 [Rx Last Taken Unknown] alprazolam 0.5 mg PO QHS PRN 10/10/21 [History Last Taken Unknown] Allergy/AdvReac Type Severity Reaction Status Date / Time No Known Allergies Allergy Verified 10/10/21 06:01 Surgical History Gastric bypass status for obesity H/O abdominoplasty History of cholecystectomy Social History Smoking Status: Never smoker ROS ROS ED Constitutional Constitutional ED: Denies chills, fever(s) or sweats Eyes Eyes: Denies change in vision ENT ENT ED: Denies dysphagia or sore throat Cardiovascular Cardiovascular: Denies chest pain, leg edema, palpitations or racing heartbeat Respiratory/Chest Respiratory/Chest: Denies cough, dyspnea or dyspnea on exertion Gastrointestinal Gastrointestinal: Reports abdominal pain, nausea and vomiting; Denies diarrhea Genitourinary Genitourinary ED: Denies dysuria, hematuria or urinary frequency Musculoskeletal Musculoskeletal: Denies back pain, extremity pain or neck pain Integumentary Denies rash or wounds Neurologic Neurologic: Denies headache(s), paresthesias or weakness EXAM Physical Exam Const Vital Signs: 10/10/21 05:57 Temperature 97.9 F Temperature Source Temporal Pulse Rate 86 Respiratory Rate 18 Blood Pressure 153/90 H Blood Pressure Mean 111 Pulse Ox 94 Positive well nourished and well developed Constitutional Narrative: Patient rolling around bed uncomfortable, nontoxic General Appearance ED: well developed HEENT Reports moist mucous membranes normocephalic and atraumatic Eyes PERRL, EOMs intact bilaterally and conjunctivae normal General Eye ED: Yes normal appearance of both eyes Neck no lymphadenopathy and supple General: Negative for tenderness Chest Wall Chest: Negative for tenderness Resp normal respiratory effort and normal air movement Effort and Inspection: symmetric chest movement; Negative for respiratory distress Cardio regular rate, regular rhythm and no murmurs Peripheral Pulses: pulses 2+ throughout GI normal to inspection, nondistended, normoactive bowel sounds GI Narrative: generalized tenderness, hypoactive bowel sounds. Nondistended. Negative Platt's or McBurney's tenderness. Palpation: Negative for guarding or rebound tenderness present Back/Spine no CVA tenderness and no thoracic nor lumbar tenderness Extremity normal to inspection General Extremety ED: Negative for edema or tenderness General Extremity: Negative for edema Neuro oriented x3 and no sensory deficits noted Sensorium / Orientation: awake and alert Skin no rashes or lesions noted and no wounds MDM MDM MDM Narrative Medical decision making narrative: Patient nontoxic however unable to lay still rolling in bed reporting similar events with internal hernia previously. History of Nela-en-Y. Will check abdominal labs, will obtain oral contrast CT abdomen pelvis for evaluation. Patient be treated with Dilaudid Zofran and IV fluids. 0648: Abdominal labs normal and stable hemoglobin 10.3 up from 8.2 previously. Patient reports since then was given blood in [place] along with receiving iron transfusions. Awaiting CT and results. Patient more comfortable at this point. Plan of care will be signed out to oncoming physician. Lab Data Attestation: I reviewed the patient's lab results. Labs: Laboratory Results - last 24 hr 10/10/21 10/10/21 10/10/21 06:23 06:23 06:23 WBC 6.2 RBC 3.59 L Hgb 10.3 L Hct 33.1 L MCV 92.2 MCH 28.7 MCHC 31.1 L RDW Std Deviation 43.1 RDW Coeff of Nara 12.8 Plt Count 400 MPV 9.3 Immature Gran % (Auto) 0.300 Neut % (Auto) 58.5 Lymph % (Auto) 31.8 [place] % (Auto) 5.7 Eos % (Auto) 2.4 Baso % (Auto) 1.3 H Absolute Neuts (auto) 3.6 Absolute Lymphs (auto) 1.97 Nucleated RBC % 0 Sodium 139 Potassium 3.8 Chloride 105 Carbon Dioxide 27.0 Anion Gap 7 BUN 9 Creatinine 0.69 Estim Creat Clear Calc 121.19 Est GFR (MDRD) Af Amer 125 Est GFR (MDRD) Non-Af 104 BUN/Creatinine Ratio 13.0 Glucose 109 H Calcium 9.2 Total Bilirubin 0.50 AST 14 L ALT 21 Alkaline Phosphatase 65 Total Protein 7.7 Albumin 3.7 Globulin 4.0 Albumin/Globulin Ratio 0.9 Lipase 135 Serum , Qual NEGATIVE Discharge Plan Triage Chief Complaint: Abd Pain ED Provider: Red Duenas Dx/Rx/DC Orders Clinical Impression: Abdominal pain, H/O gastric bypass, History of cholecystectomy, Nausea & vomiting, Anemia Prescriptions: No Action multivitamin with minerals 1 EACH tablet 1 ea PO DAILY RF: 0 lorazepam [Ativan] 0.5 mg Tablet 0.5 mg PO DAILY PRN (Reason: Anxiety) RF: 0 pantoprazole [Protonix] 40 mg tablet,delayed release (DR/EC) 40 mg PO DAILY 30 Days Qty: 30 RF: 0 alprazolam 0.5 mg Tablet 0.5 mg PO QHS PRN (Reason: Anxiety) RF: 0 Primary Care Provider: Staci Mckeon Referrals: Staci Mckeon MD [Primary Care Provider] -
[2021-10-10] MEDS: 0.9% Normal Saline 1,000 ML 125 ML IV (06:28)
[2021-10-10] MEDS: Ondansetron 4 MG/2 ML Vial IV (06:28)
[2021-10-10] MEDS: HYDROmorphone 1 MG/ML Syringe IV ×3 (06:28→09:22)
[2021-10-10 06:30] LABS: Absolute Lymphocyte Count 1.97 X10^3/uL (0.83-4.51); Absolute Neutrophil Count 3.6 X10^3/uL (2.0-7.7); Basophil# 0.08 X10^3/uL; Basophil% 1.3 % (0-1); Eosinophil# 0.15 X10^3/uL; Eosinophils% 2.4 % (0-5); Hematocrit 33.1 % (37-47); Hemoglobin 10.3 g/dL (12.0-15.0); Lymphocyte # 1.97 X10^3/ul (0.83-4.51); Lymphocyte % 31.8 % (19-41); Mean Corp Hgb Conc 31.1 g/dL (32-36); Mean Corpuscular Hgb 28.7 pg (27.0-32.0); Mean Corpuscular Volume 92.2 fL (81-99); Mean Platelet Vol. 9.3 fl (6.2-12.0); Monocyte# 0.35 X10^3/uL; Monocyte% 5.7 % (0-10); NRBC Flagged by Analyzer 0 % (0-5); Neutrophil # 3.62 X10^3/uL (2.7-7.7); Neutrophil % 58.5 % (47-70); Platelet Count 400 K/mm3 (150-450); RBC Distribution Width CV 12.8 % (11.6-14.6); RBC Distribution Width SD 43.1 fl (35.1-43.9); Red Blood Count 3.59 M/mm3 (4.2-5.4); White Blood Count 6.2 K/mm3 (4.4-11.0)
[2021-10-10 06:40] LABS: Internal QC Validated? YES +Cl - CLEAR BKGD; Pregnancy, Serum, hCG Quali. NEGATIVE Negative
[2021-10-10 06:45] LABS: ALB/GLOB Ratio 0.9 RATIO (0.9-2.4); AST(SGOT) 14 U/L (15-37); Alanine Aminotransfer ALT/SGPT 21 U/L (13-56); Albumin, Serum 3.7 g/dL (3.2-5.0); Alkaline Phosphatase 65 U/L (45-117); Anion Gap 7 (5-15); BUN 9 mg/dL (7-18); Calcium,Total 9.2 mg/dL (8.5-10.1); Chloride 105 mmol/L (98-107); Creatinine, Serum 0.69 mg/dL (0.55-1.02); EST Glomerular Filtration Rate 104 mL/min (>60); Est Glom Filt Rate - Afr Amer 125 mL/min (>60); Estimated Creatinine Clearance 121.19 ml/min; Glucose 109 mg/dL (74-106); Lipase 135 U/L (73-393); Potassium 3.8 mmol/L (3.5-5.1); Protein, Total 7.7 g/dL (6.4-8.2); Sodium Level 139 mmol/L (136-145)
--- NOTE | 2021-10-10 09:13 | ED.VIS.GI ---
HPI HPI - GI History of Present Illness Chief Complaint: Abd Pain PFSH PFSH Home Medications multivitamin with minerals 1 ea PO DAILY 06/24/19 [History Last Taken Unknown] lorazepam [Ativan] 0.5 mg PO DAILY PRN 05/31/21 [History Last Taken Unknown] pantoprazole [Protonix] 40 mg PO DAILY 30 Days #30 tab 05/31/21 [Rx Last Taken Unknown] alprazolam 0.5 mg PO QHS PRN 10/10/21 [History Last Taken Unknown] oxycodone-acetaminophen 1 tab PO Q6H PRN PRN 3 Days #12 tablet 10/10/21 [Rx Last Taken Unknown] Allergy/AdvReac Type Severity Reaction Status Date / Time No Known Allergies Allergy Verified 10/10/21 06:01 Surgical History Gastric bypass status for obesity H/O abdominoplasty History of cholecystectomy Social History Smoking Status: Never smoker EXAM Physical Exam Const Vital Signs: 10/10/21 05:57 Temperature 97.9 F Temperature Source Temporal Pulse Rate 86 Respiratory Rate 18 Blood Pressure 153/90 H Blood Pressure Mean 111 Pulse Ox 94 MDM MDM Lab Data Labs: Laboratory Results - last 24 hr 10/10/21 10/10/21 10/10/21 06:23 06:23 06:23 WBC 6.2 RBC 3.59 L Hgb 10.3 L Hct 33.1 L MCV 92.2 MCH 28.7 MCHC 31.1 L RDW Std Deviation 43.1 RDW Coeff of Nara 12.8 Plt Count 400 MPV 9.3 Immature Gran % (Auto) 0.300 Neut % (Auto) 58.5 Lymph % (Auto) 31.8 [place] % (Auto) 5.7 Eos % (Auto) 2.4 Baso % (Auto) 1.3 H Absolute Neuts (auto) 3.6 Absolute Lymphs (auto) 1.97 Nucleated RBC % 0 Sodium 139 Potassium 3.8 Chloride 105 Carbon Dioxide 27.0 Anion Gap 7 BUN 9 Creatinine 0.69 Estim Creat Clear Calc 121.19 Est GFR (MDRD) Af Amer 125 Est GFR (MDRD) Non-Af 104 BUN/Creatinine Ratio 13.0 Glucose 109 H Calcium 9.2 Total Bilirubin 0.50 AST 14 L ALT 21 Alkaline Phosphatase 65 Total Protein 7.7 Albumin 3.7 Globulin 4.0 Albumin/Globulin Ratio 0.9 Lipase 135 Serum , Qual NEGATIVE Radiography Diagnostic Testing: Clinical Impression(s) from Imaging Studies Abdomen CT 10/10/21 06:17 IMPRESSION: 1. Status post gastric bypass surgery. 2. No evidence of small bowel obstruction. 3. No focal acute inflammatory process. 4. Absent gallbladder consistent with previous cholecystectomy. Electronically Signed: Sandro Pelaez MD at 9:08 EDT , Discharge Plan Triage Chief Complaint: Abd Pain ED Provider: Red Duenas Dx/Rx/DC Orders Clinical Impression: Abdominal pain, H/O gastric bypass, History of cholecystectomy, Nausea & vomiting, Anemia Instructions: Abdominal Pain, ED Abdominal Pain Unkn Cause Fem Prescriptions: New oxycodone-acetaminophen [oxycodone-acetaminophen] 1 TABLET tablet 1 tab PO Q6H PRN PRN (Reason: Pain) 3 Days Qty: 12 RF: 0 No Action multivitamin with minerals 1 EACH tablet 1 ea PO DAILY RF: 0 lorazepam [Ativan] 0.5 mg Tablet 0.5 mg PO DAILY PRN (Reason: Anxiety) RF: 0 pantoprazole [Protonix] 40 mg tablet,delayed release (DR/EC) 40 mg PO DAILY 30 Days Qty: 30 RF: 0 alprazolam 0.5 mg Tablet 0.5 mg PO QHS PRN (Reason: Anxiety) RF: 0 Primary Care Provider: Staci Mckeon Referrals: Staci Mckeon MD [Primary Care Provider] - Activity Restrictions/Additional Instructions: Follow-up with your surgeon if pain persists or worsens. Disposition Disposition: Home, Self Care
[2021-10-10 10:02] VITALS: PULSE 82; RESP 17; O2SAT 98
== END 2021-10-10 10:03 | disposition home or self-care (01) ==
PROVIDERS: Emergency Provider Emergency Medicine; PCP Internal Medicine; Visit Provider Emergency Medicine
DX: R10.84 Generalized abdominal pain (principal); R11.2 Nausea with vomiting, unspecified; D64.9 Anemia, unspecified; Z90.49 Acquired absence of other specified parts of digestive tract; Z98.84 Bariatric surgery status
CPT/HCPCS: 74176; 80053; 83690; 84703; 85025; 96361; 96374; 96375; 96376; 99282; J7030; A4216; J2405

== ENCOUNTER 2023-05-20 22:01 | Emergency (ER) | payer MEDICAID, SELFPAY ==
[2023-05-20 22:03] VITALS: BP 134/97; PULSE 93; RESP 16; TEMP 37; O2SAT 100; BMI 28.7
--- NOTE | 2023-05-20 22:45 | EX.ED.VIS.PS ---
HPI HPI - Psych History of Present Illness Chief Complaint: Mental Health Detail of Chief Complaint: Anxiety. Does not feel herself. Informant: patient and family Onset/Context/Timing Onset: Today and Hours Context: Gradual Onset Timing: Continuous Current Severity: Mild Maximum Severity: Mild Narrative Narrative: 33-year-old female history of prior gastric bypass, cholecystectomy and history of anxiety. States she is under a lot of stress lately due to medical issues with her daughter. Today says she just does not feel like herself. Feels like she is having an out of body experience. Took a Xanax tonight due to anxiety. Denies any nausea, vomiting or diarrhea. No fever or chills. No dysuria. No headache or head trauma. No chest or abdominal pain. Prior similar symptoms: No Recent Illness/Hospitalization: No PFSH PFSH Medical History Anxiety Home Medications multivitamin with minerals 1 ea PO DAILY 06/24/19 [History Last Taken Unknown] lorazepam 0.5 mg tablet (Ativan) 0.5 mg PO Q12H PRN Anxiety 05/31/21 [History Last Taken Unknown] Allergy/AdvReac Type Severity Reaction Status Date / Time No Known Allergies Allergy Verified 10/10/21 06:01 Surgical History Gastric bypass status for obesity H/O abdominoplasty History of cholecystectomy Social History Smoking Status: Never smoker ROS ROS ED Respiratory/Chest Respiratory/Chest: Denies cough or dyspnea Gastrointestinal Gastrointestinal: Denies abdominal pain Genitourinary Genitourinary ED: Denies dysuria Musculoskeletal Musculoskeletal: Denies arthralgias Integumentary Denies abscess Neurologic Neurologic: Denies headache(s) Psychiatric Psychiatric: Reports anxiety; Denies depression, suicidal ideation or suicidal thoughts Endocrine Endocrinology: Denies polydipsia or polyphagia Hematologic/Lymphatic Hematologic/Lymphatic: Denies easy bleeding, easy bruising or lymphadenopathy Allergic/Immunologic Allergic/Immunologic ED: Denies mouth swelling, tongue swelling or urticaria EXAM Physical Exam Narrative Exam Narrative: Well-appearing 33-year-old female. Vital signs are stable afebrile. Pulse ox 100% on room air no signs hypoxia. No distress. Family seated at bedside. H EENT exam unremarkable. No trauma. Pupils round reactive light. No facial droop. Moist mucous membranes. Neck nontender no lymphadenopathy. No meningismus. Lungs clear to auscultation bilaterally. Heart regular rhythm rate about 90 no murmur. Chest wall and ribs nontender. Abdomen soft nontender. Pelvic girdle intact. Moving all 4 extremities. Nontender. No edema. Neurologically awake and alert. Answering questions and following commands. No focal motor deficits. NIH is 0. Normal account auditor strength. Normal dorsi plantarflexion. Const Vital Signs: 05/20/23 22:03 05/21/23 00:02 Temperature 98.6 F Temperature Source Oral Pulse Rate 93 86 Respiratory Rate 16 16 Blood Pressure 134/97 H 107/69 Blood Pressure Mean 109 81 Pulse Ox 100 97 Oxygen Delivery Method Room Air Room Air Positive well nourished and well developed; Negative for obese, cachectic, contractures or unkempt General Appearance ED: well developed and NAD; Negative for unkempt, cachectic, contractures or pallor Nutritional Appearance: Negative for cachectic or obese HEENT Reports moist mucous membranes; Denies other normocephalic and atraumatic; Negative for trauma, tenderness or other Eyes PERRL and EOMs intact bilaterally General Eye ED: Negative for pale conjunctiva, scleral icterus or other Neck no lymphadenopathy, supple and no JVD General: Negative for tenderness Resp normal respiratory effort and clear to auscultation bilaterally Effort and Inspection: Negative for retractions Auscultation: Negative for rales, rhonchi, wheezes or diminished lung sounds Cardio S1 normal heart sound, S2 normal heart sound and no murmurs Palpation: other Rate: regular rate; Negative for bradycardia or tachycardic Rhythm: regular rhythm GI non-tender, non-distended and no masses Inspection: Negative for abdominal distention Auscultation: normoactive bowel sounds Palpation: soft; Negative for tender or guarding Bladder / Kidney Exam: No other Back/Spine no CVA tenderness General Back: Negative for CVA tenderness Cervical Spine: Negative for cervical spine tenderness Thoracic Spine / Upper Back: Negative for thoracic spinal tenderness Lumbar Spine / Lower Back: Negative for lumbar spinal tenderness Coccyx: Negative for other Extremity normal to inspection General Extremety ED: Negative for edema, tenderness or other findings General Extremity: Negative for edema or other findings Neuro oriented x3, CN's II-XII intact bilaterally and no sensory deficits noted Anish Coma Scale: document GCS findings Spontaneous Obeys Commands Oriented 15 Sensorium / Orientation: alert, oriented to person, oriented to place and oriented to time; Negative for orientation impaired, confused, lethargic or stuporous Motor Exam: strength 5/5 throughout Psych mental status grossly normal, thought process normal, cooperative, affect normal and speech normal Appearance: grossly normal; Negative for unkempt Attitude: calm, engaged, No paranoid and No withdrawn Activity / Motor Behavior: appropriate eye contact Speech: normal speech Mood & Affect: euthymic mood Thought Process: normal thought process Thought Content: normal thought content Attention / Concentration: attention grossly intact Memory / Cognition: memory grossly intact Insight: insight good Judgement: judgement good Skin General Skin Exam: Negative for jaundice or pallor Lesions: no lesions Rashes: no rashes Trauma: Negative for abrasion Wounds: Negative for amputation MDM MDM MDM Narrative Medical decision making narrative: 33-year-old female history of anxiety with reportedly mental status change. She has a normal exam. Screening labs are being obtained. Mom requested a tox screen. Repeat exam at 11:30 PM patient is doing well. Exam is unchanged and unremarkable. I went over the initial lab test with the patient and female at bedside. Awaiting the talk screen that they requested. It is in the lab. Patient doing well at 11:50 PM. CAT scan being obtained. If it is unremarkable she will be discharged home with outpatient follow-up. Patient doing well at 12:48 PM. CAT scan was unremarkable. She will be discharged home. History & Record Review Discussion w/independent historian: Patient and Family Additional record(s) reviewed:: Prior inpatient record, Prior outpatient record, Prior ED visit and Prior labs Lab Data Attestation: I reviewed the patient's lab results. Lab results narrative: CBC shows a white count of 6 H&H of 10.2 and 31.9 which is her baseline chronic anemia. Platelets 349. Electrolytes show a gap of 2 normal BUN of 15 creatinine 0.6. Glucose 101. Liver enzymes are normal. Serum test negative. Alcohol level negative. Tox screen is positive for benzodiazepines and cannabis. CAT scan of the brain unremarkable. Labs: Laboratory Results - last 24 hr 05/20/23 05/20/23 22:57 23:13 WBC 6.6 RBC 3.23 L Hgb 10.2 L Hct 31.9 L MCV 98.8 MCH 31.6 MCHC 32.0 RDW Std Deviation 47.1 H RDW Coeff of Nara 13.0 Plt Count 349 MPV 9.1 Immature Gran % (Auto) 0.300 Neut % (Auto) 57.8 Lymph % (Auto) 29.3 [place] % (Auto) 8.8 Eos % (Auto) 2.6 Baso % (Auto) 1.2 H Absolute Neuts (auto) 3.8 Absolute Lymphs (auto) 1.92 Nucleated RBC % 0 Sodium 141 Potassium 3.9 Chloride 110 H Carbon Dioxide 29.0 Anion Gap 2 L BUN 15 Creatinine 0.67 Estim Creat Clear Calc 134.36 Est GFR (MDRD) Af Amer 129 Est GFR (MDRD) Non-Af 107 BUN/Creatinine Ratio 22.5 H Glucose 101 Calcium 8.6 Total Bilirubin < 0.10 L AST 11 L ALT 13 Alkaline Phosphatase 54 Total Protein 6.7 Albumin 3.3 Globulin 3.4 Albumin/Globulin Ratio 1.0 Serum , Qual NEGATIVE Urine Opiates Screen NEGATIVE Urine Methadone Screen NEGATIVE Ur Barbiturates Screen NEGATIVE Ur Phencyclidine Scrn NEGATIVE Ur Amphetamines Screen NEGATIVE MDMA (Ecstasy) Screen NEGATIVE U Benzodiazepines Scrn POSITIVE H Urine Cocaine Screen NEGATIVE U Cannabinoids Screen POSITIVE H Ur Drug Screen Comment Ethyl Alcohol < 3.0 Radiography Diagnostic Testing: Clinical Impression(s) from Imaging Studies Brain CT 05/20/23 23:54 IMPRESSION: Normal unenhanced CT scan of the brain. Electronically Signed: Jose Alberto Joseph MD at 0:18 EST , Rhythm Strip Rhythm Strip: Sinus Rhythm Rate: 87 Ectopy: None EKG Initial EKG: Interpretation: Sinus Rhythm and No Acute Injury Pattern Comments: Normal sinus rhythm rate 87 no acute signs of OK or ischemia. Normal EKG. Discharge Plan Triage Chief Complaint: Mental Health ED Provider: Emmanuel Morales Dx/Rx/DC Orders Clinical Impression: Marijuana use, Anxiety Instructions: ED Anxiety Reaction Prescriptions: No Action multivitamin with minerals 1 EACH tablet 1 ea PO DAILY lorazepam [Ativan] 0.5 mg Tablet 0.5 mg PO Q12H PRN (Reason: Anxiety) Primary Care Provider: Staci Mckeon Referrals: Staci Mckeon MD [Primary Care Provider] - As soon as possible Activity Restrictions/Additional Instructions: Follow-up with your doctors office this coming week. Return if worse. Number things specific on the workup for specific cause of this. It may all be secondary to anxiety. Disposition Disposition: Home, Self Care
[2023-05-20 23:07] LABS: Absolute Lymphocyte Count 1.92 X10^3/uL (0.83-4.51); Absolute Neutrophil Count 3.8 X10^3/uL (2.0-7.7); Basophil# 0.08 X10^3/uL; Basophil% 1.2 % (0-1); Eosinophil# 0.17 X10^3/uL; Eosinophils% 2.6 % (0-5); Hematocrit 31.9 % (37-47); Hemoglobin 10.2 g/dL (12.0-15.0); Lymphocyte # 1.92 X10^3/ul (0.83-4.51); Lymphocyte % 29.3 % (19-41); Mean Corpuscular Hgb 31.6 pg (27.0-32.0); Mean Corpuscular Volume 98.8 fL (81-99); Mean Platelet Vol. 9.1 fl (6.2-12.0); Monocyte# 0.58 X10^3/uL; Monocyte% 8.8 % (0-10); NRBC Flagged by Analyzer 0 % (0-5); Neutrophil # 3.79 X10^3/uL (2.7-7.7); Neutrophil % 57.8 % (47-70); Platelet Count 349 K/mm3 (150-450); RBC Distribution Width SD 47.1 fl (35.1-43.9); Red Blood Count 3.23 M/mm3 (4.2-5.4); White Blood Count 6.6 K/mm3 (4.4-11.0)
[2023-05-20 23:18] LABS: Internal QC Validated? YES +Cl - CLEAR BKGD; Pregnancy, Serum, hCG Quali. NEGATIVE Negative
[2023-05-20 23:20] LABS: Alcohol, Blood (Medical)-Serum < 3.0 mg/dL
[2023-05-20 23:28] LABS: AST(SGOT) 11 U/L (15-37); Alanine Aminotransfer ALT/SGPT 13 U/L (13-56); Albumin, Serum 3.3 g/dL (3.2-5.0); Alkaline Phosphatase 54 U/L (45-117); Anion Gap 2 (5-15); BUN 15 mg/dL (7-18); BUN/Creat Ratio 22.5 RATIO (10-20); Calcium,Total 8.6 mg/dL (8.5-10.1); Chloride 110 mmol/L (98-107); Creatinine, Serum 0.67 mg/dL (0.55-1.02); EST Glomerular Filtration Rate 107 mL/min (>60); Est Glom Filt Rate - Afr Amer 129 mL/min (>60); Estimated Creatinine Clearance 134.36 ml/min; Globulin 3.4 g/dL (2.2-4.2); Glucose 101 mg/dL (74-106); Potassium 3.9 mmol/L (3.5-5.1); Protein, Total 6.7 g/dL (6.4-8.2); Sodium Level 141 mmol/L (136-145); Total Bilirubin < 0.10 mg/dL (0.20-1.00)
[2023-05-20 23:40] LABS: Amphetamine Urine VISTA NEGATIVE (<1000 ng/mL); Barbiturate Urine VISTA NEGATIVE (< 200 ng/mL); Benzodiazepine Urine VISTA POSITIVE (< 200 ng/mL); Cocaine Urine VISTA NEGATIVE (< 300 ng/mL); Ecstacy Urine VISTA NEGATIVE (< 500 ng/mL); Methadone Urine VISTA NEGATIVE (< 300 ng/mL); PCP Urine VISTA NEGATIVE (< 25 ng/mL); THC Urine VISTA POSITIVE (< 50 ng/mL); Vista UDS pH Range 4
--- NOTE | 2023-05-20 23:54 | CT_ITS ---
STUDY: CT BRAIN WITHOUT CONTRAST REASON FOR EXAM: Female, 33 years old. Altered level of consciousness RADIATION DOSAGE (If Supplied By Facility): CTDIvol = ( 44.99 ) mGy, DLP = ( 829.85 ) mGycm TECHNIQUE: Transaxial CT imaging of the brain was performed without administration of intravenous contrast material. Individualized dose optimization techniques were used for this CT. COMPARISON: No relevant priors. FINDINGS: Normal soft tissue structures. Normal calvarium. Normal size ventricles and extra-axial spaces for the patient''s age. Normal white matter tracts of the cerebral hemispheres. Normal basal ganglia and thalami. Normal brainstem. Normal cerebellum. There is no intracranial hemorrhage. There are no findings of an acute ischemic infarction. Normal visualized paranasal sinuses. CT/Brain/Head without Contrast IMPRESSION: Normal unenhanced CT scan of the brain. Electronically Signed: Jose Alberto Joseph MD at 0:18 EST ,
[2023-05-21 00:02] VITALS: BP 107/69; PULSE 86; RESP 16; O2SAT 97
[2023-05-21 01:05] VITALS: BP 104/69; PULSE 87; RESP 16; TEMP 36.6; O2SAT 98
== END 2023-05-21 01:07 | disposition home or self-care (01) ==
PROVIDERS: Emergency Provider Emergency Medicine; PCP Internal Medicine; Visit Provider Emergency Medicine
DX: F12.90 Cannabis use, unspecified, uncomplicated (principal); F41.9 Anxiety disorder, unspecified
CPT/HCPCS: 70450; 80053; 80307; 80320; 84703; 85025; 93005; 99284; A4216; G0480

== ENCOUNTER 2025-02-05 20:07 | Emergency (ER) | payer MEDICAID, SELFPAY ==
[2025-02-05 20:09] VITALS: BP 151/120; PULSE 112; RESP 60; TEMP 36.8; O2SAT 100
[2025-02-05 20:24] VITALS: BMI 23.9
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
[2025-02-05 22:00] VITALS: BP 112/80; PULSE 70; RESP 18; O2SAT 98
[2025-02-05 22:23] VITALS: BP 112/80; PULSE 70; RESP 18; TEMP 36.6; O2SAT 98
== END 2025-02-05 22:24 | disposition home or self-care (01) ==
PROVIDERS: Emergency Provider Emergency Medicine; PCP Internal Medicine; Visit Provider Emergency Medicine
DX: F41.0 Panic disorder [episodic paroxysmal anxiety] (principal)
CPT/HCPCS: 99282